=== PATIENT | female | born 1950 | race Asian ===

== ENCOUNTER 2017-03-11 12:39 | Emergency (ER) | payer SELFPAY ==
[~2017-03-11] VITALS: Ht 157.5 cm; Wt 59.0 kg
--- NOTE | 2017-03-11 12:52 | NUR ---
PT AMBULATORY TO ER BED 09. C/O MIDSTERNAL CHEST PAIN R/T UPPER BACK. 2 EPISODES OF CHEST PAIN. FIRST STARTED AT 0200 AND LASTED FOR 30 MINS. STATES TOOK B/P MEDICATION AND HEARTBURN PILL W/ RELIEF. AND ANOTHER CHEST PAIN W/ SAME SYMPTOMS AT 0800. PT WENT TO URGENT CARE AND WAS ADVISED TO GO TO ER. GOWNED AND PLACED ON MONITOR. HYPERTENSIVE OTHERWISE STABLE VITALS. AWAITING MD LUNA.
[2017-03-11] MEDS ORDERED: ASPIRIN 81 MG TAB.CHEW PO ONE (13:00)
--- NOTE | 2017-03-11 13:00 | NUR ---
DR OCHOA AT BEDSIDE FOR EVAL.
--- NOTE | 2017-03-11 13:05 | NUR ---
KENNEL HAND AT BEDSIDE FOR BLOOD DRAW.
[2017-03-11] MEDS ORDERED: ASPIRIN 81 MG TAB.CHEW ONE (13:06)
[2017-03-11 13:11] LABS: BASOPHILS % (AUTO) 0.5 % (0.0-2.0); EOSINOPHILS # (AUTO) 0.1 /CMM (0.0-0.7); EOSINOPHILS % (AUTO) 0.8 % (0.0-6.0); HEMATOCRIT 42 % (33-45); HEMOGLOBIN 13.5 g/dL (11.5-14.8); LYMPHOCYTES # (AUTO) 1.6 /CMM (0.8-4.8); LYMPHOCYTES % (AUTO) 21.9 % (20.0-44.0); MEAN CORPUSCULAR HEMOGLOBIN 28 PG (26.0-33.0); MEAN CORPUSCULAR HGB CONC 32 g/dl (31.0-36.0); MEAN CORPUSCULAR VOLUME 86 fL (82-100); MONOCYTES # (AUTO) 0.3 /CMM (0.1-1.30); MONOCYTES % (AUTO) 4.6 % (2.0-12.0); NEUTROPHILS # (AUTO) 5.2 /CMM (1.8-8.9); NEUTROPHILS % (AUTO) 72.2 % (43.0-81.0); PLATELET COUNT (AUTO) 172 /CMM (150-450); RDW COEFFICIENT OF VARIATION 12.6 (11.5-15.0); RED BLOOD CELL COUNT(AUTO) 4.84 MIL/uL (4.0-5.2); WHITE BLOOD COUNT (AUTO) 7.2 K/uL (4.3-11.0)
[2017-03-11 13:21] LABS: CALCIUM, SERUM 9.1 mg/dL (8.5-10.1); CARBON DIOXIDE 29 mmol/L (21-32); CHLORIDE 103 mmol/L (98-107); CREATININE 0.6 mg/dL (0.6-1.3); GLUCOSE 90 mg/dL (74-106); POTASSIUM 3.6 mmol/L (3.5-5.1); SODIUM SERUM 142 mmol/L (136-145); UREA NITROGEN, BLOOD 15 mg/dL (7-18)
[2017-03-11 13:25] LABS: INR 0.96 (0.87-1.13)
[2017-03-11 13:30] LABS: TROPONIN I < 0.017 ng/mL (0.00-0.056)
--- NOTE | 2017-03-11 13:36 | NUR ---
RADIOLOGY AT BEDSIDE FOR CHEST XRAY.
[2017-03-11 14:22] VITALS: BP 140/75
--- NOTE | 2017-03-11 14:22 | NUR ---
Patient discharged to home in stable condition. Written and verbal after care instructions given. Patient verbalizes understanding of instruction.IV removed. Catheter intact and site benign. Pressure and 4x4 applied to site. No bleeding noted.
== END 2017-03-11 14:23 | disposition home or self-care (01) ==
LOC: ER 12:42
DX: R07.2 Precordial pain (principal); I10 Essential (primary) hypertension
CPT/HCPCS: 36415; 71010-TC; 80048-TC; 84484-TC; 85025-TC; 85730-TC; A4606; Z7610